=== PATIENT | male | born 1970 ===

== ENCOUNTER → 2021-02-23 10:33 | Outpatient (BNVA) | payer OTHER, SELFPAY | PROVIDERS: PCP Internal Medicine; Visit Provider Urology ==

== ENCOUNTER 2022-03-21 10:24 | Outpatient (REF) | payer OTHER, SELFPAY ==
--- NOTE | ~2022-03-21 | US_ITS ---
EXAMINATION: US RETROPERITONEAL LIMITED (RENAL ONLY) CLINICAL INFORMATION: Cyst of kidney. COMPARISON: None TECHNIQUE: Real-time imaging of the kidneys. FINDINGS: RIGHT KIDNEY: 11.9 x 5.3 x 5.2 cm (SAG x AP x TRV). The kidney is normal in size, contour, and echogenicity. Renal cortical thickness is normal. There is a 2.3 x 1.6 x 2.2 cm cyst in the mid to lower pole. This has some internal echoes that are difficult to clear and may represent a complex cyst. No renal calculi or hydronephrosis. LEFT KIDNEY: 11.8 x 6.6 x 6.6 cm (SAG x AP x TRV). The kidney is normal in size, contour, and echogenicity. Renal cortical thickness is normal. There are 2 cysts measuring 2.4 x 1.6 x 1.8 cm on the lower pole and 1.5 x 1.3 x 1.1 cm in the midpole. No renal calculi or hydronephrosis. US/US renal BI IMPRESSION: Bilateral renal cysts. The right renal cyst has internal echoes that are difficult to clear and may represent a complex cyst.
== END 2022-03-21 10:25 | disposition home or self-care (01) ==
LOC: HO.US 10:24
PROVIDERS: Visit Provider Urology
DX: N28.1 Cyst of kidney, acquired (principal)
CPT/HCPCS: 76775

== ENCOUNTER 2023-01-10 14:36 | Outpatient (REF) | payer OTHER, SELFPAY ==
--- NOTE | ~2023-01-10 | US_ITS ---
EXAMINATION: US RETROPERITONEAL LIMITED (RENAL ONLY) CLINICAL INFORMATION: Cyst of kidney, acquired. COMPARISON: Renal ultrasound 03/21/2022. TECHNIQUE: Real-time imaging of the kidneys. FINDINGS: RIGHT KIDNEY: 11.1 x 6.1 x 6.6 cm (SAG x AP x TRV). The kidney is normal in size, contour, and echogenicity. Renal cortical thickness is normal. No renal calculi or hydronephrosis. Stable 2.5 cm mildly complex cyst with internal echoes in the mid to lower pole. LEFT KIDNEY: 10.7 x 6.5 x 6.5 cm (SAG x AP x TRV). The kidney is normal in size, contour, and echogenicity. Renal cortical thickness is normal. No calculi or focal parenchymal lesions. No hydronephrosis. Previously seen cysts are not reproduced on the current examination. US/US renal BI IMPRESSION: Stable 2.5 cm mildly complex cyst with internal echoes in the mid to lower right kidney.
== END 2023-01-10 14:37 | disposition home or self-care (01) ==
LOC: HO.US 14:36
PROVIDERS: PCP Internal Medicine; Visit Provider Urology
DX: N28.1 Cyst of kidney, acquired (principal)
CPT/HCPCS: 76775

== ENCOUNTER 2023-04-12 13:31 | Outpatient (AMB) | payer OTHER, SELFPAY ==
--- NOTE | 2023-04-12 13:35 | MHC.OFFVIS ---
Intake Intake Visit Reasons: 1Y US(Set) Intake Note: Patient presents today for a 1 YR follow-up with Ultrasound Results. Meds- Sildenafil Allergies to Antibiotic- None Blood Thinner- None Cut Off Machine Helper Required: No Accompanied by: Self / Same As Patient Allergies No Known Allergies Allergy (Verified 04/12/23 13:44) HPI HPI Comments History of Present Illness Details Maninder is a pleasant male. Oxana is a patient Dr. Stapleton. He seen for the following urologic conditions - renal cyst discussed results PCP checks PSA cysts are not related to back discomfort encouraged to lose 10-15 lb with dietary modification Renal cyst Found on imaging during micro hematuria evaluation Imaging - 02/19 renal ultrasound with right renal cyst - 03/23 renal ultrasound bilateral cysts 2.4 cm - 03/24 renal ultrasound bilateral cysts continue surveillance PFSH Medical History Renal cyst, acquired Surgical History (Updated 04/12/23 @ 13:40 by KEYA Carcamo) Hx of shoulder surgery Hx of brain surgery Family History (Updated 04/12/23 @ 13:40 by KEYA Carcamo) Father Cancer Mother Diabetes mellitus Heart failure COPD (chronic obstructive pulmonary disease) Social History (Updated 04/12/23 @ 13:41 by KEYA Carcamo) Alcohol intake: never Patient Tobacco Use Status: Never used Tobacco Review of Systems Const Denies chills and Denies fever(s) Card Reports no additional complaints and Denies syncope Resp Denies cough GI Denies abdominal pain and Denies heartburn Reports as per HPI and Denies change in libido Neuro Denies syncope Psych Denies change in libido Endo Denies change in libido Physical Exam Const General: cooperative, healthy appearing, comfortable and no acute distress Orientation/consciousness: patient oriented x3 HEENT Face and sinus: Yes normal facial exam Mouth: moist mucous membranes Neck Neck: Yes normal visual inspection, Yes full ROM and Yes trachea midline Chest Chest palpation & inspection: normal inspection of the chest Resp Effort & Inspection: normal respiratory effort, able to speak in complete sentences and no respiratory distress GI Inspection: Yes normal to inspection Back/Spine/Pelvis Cervical Spine: normal cervical lordosis Thoracic/Lumbar Spine: thoracic and lumbar spine normal to inspection Skin General skin exam: no rashes or lesions noted Neuro General: patient oriented x3, gait normal, tone normal and moves all extremities Extrem General: Yes normal to inspection and Yes capillary refill normal Results AMB Urinalysis, Automated UA Leukoctes 0 Jaylen/uL Last Edit by KEYA Carcamo on 04/12/23 13:55 UA Nitrite Negative Last Edit by Freida Sanchez [facility] on 04/12/23 13:55 UA Urobilinogen 0.2 mg/dL Last Edit by Freida Sanchez Jessica on 04/12/23 13:55 UA Protein 0 mg/dL Last Edit by Freida Sanchez [facility] on 04/12/23 13:55 UA pH 6.0 Last Edit by Freida Sanchez [facility] on 04/12/23 13:55 UA Blood 80 Jose Manuel/uL Last Edit by Freida Sanchez [facility] on 04/12/23 13:55 2+ Freida Sanchez 04/12/23 13:55 UA Specific [place] 1.025 Last Edit by Freida Sanchez Jessica on 04/12/23 13:55 UA Ketone Negative Last Edit by Freida Sanchez [facility] on 04/12/23 13:55 UA Bilirubin 0 mg/dL Last Edit by Freida Sanchez [facility] on 04/12/23 13:55 UA Glucose 0 mg/dL Last Edit by Freida Sanchez [facility] on 04/12/23 13:55 Results Reviewed Results Reviewed: Laboratory Last Values Urine pH (Auto) 6.0 04/12/23 13:50 Specific [place] (Auto) 1.025 04/12/23 13:50 Urine Protein (Auto) 0 mg/dL 04/12/23 13:50 Glucose (UA)(Auto) 0 mg/dL 04/12/23 13:50 Urine Ketones (Auto) Negative 04/12/23 13:50 Urine Blood (Auto) 80 Jose Manuel/uL 04/12/23 13:50 Urine Nitrite (Auto) Negative 04/12/23 13:50 Urine Bilirubin (Auto) 0 mg/dL 04/12/23 13:50 Urine Urobilinogen (Auto) 0.2 mg/dL 04/12/23 13:50 Leukocyte Esterase (Auto) 0 Jaylen/uL 04/12/23 13:50 Assessment & Plan Assessment & Plan (1) Renal cyst: Code(s): N28.1 - Cyst of kidney, acquired Plan Twelve month follow-up Orders: Orders AMB Urinalysis Automated 04/12/23 Z13.9 - Encounter for screening, unspecified US renal BI 364 Days N28.1 - Cyst of kidney, acquired Patient Instructions: Imaging studies, laboratory and physical exam results were discussed and reviewed in detail. No major barriers to patient understanding were identified. An opportunity to ask questions regarding the treatment plan was provided. All questions were answered. The patient expressed understanding and agreement with the above treatment plan. The patient is aware they should contact our office by phone for worsening of their current condition or the appearance of new urologic symptoms. Compliance is encouraged with any medications and followup testing that is ordered. It is a privilege to participate in the urologic care of your patient. If you have any questions or concerns regarding treatment for the above conditions, or other urologic issues, please do not hesitate to contact me. The office telephone contact is [phone]. This note is constructed using voice recognition software. While every effort has been made to ensure accuracy band teacher errors may have been included. Yours sincerely, Dr Crescencio Harry MD, [facility] - Urology Providers of Expert, Compassionate Care for the Genitourinary System Coding Level of Care Code Est Pt Level 4 (86571) Diagnoses Renal cyst N28.1
== END 2023-04-12 14:33 | disposition home or self-care (01) ==
PROVIDERS: Visit Provider Urology
DX: N28.1 Cyst of kidney, acquired (principal)
CPT/HCPCS: 99213

== ENCOUNTER → 2023-04-12 13:31 | Outpatient (BNVA) | payer OTHER, SELFPAY | PROVIDERS: Visit Provider Urology ==

== ENCOUNTER 2024-04-08 08:03 | Outpatient (REF) | payer OTHER, SELFPAY ==
--- NOTE | ~2024-04-08 | US_ITS ---
EXAMINATION: US RETROPERITONEAL LIMITED (RENAL ONLY) CLINICAL INFORMATION: Cyst of kidney, acquired. COMPARISON: Ultrasound renal 01/10/2023 and 03/21/2022. TECHNIQUE: Real-time imaging of the kidneys. Limited visualization due to bowel gas. FINDINGS: RIGHT KIDNEY: 12.9 x 5.2 x 7.3 cm (SAG x AP x TRV). No hydronephrosis. No renal calculi. Renal cortical thickness is normal. Limited visualization. LEFT KIDNEY: 12.3 x 6.4 x 6.8 cm (SAG x AP x TRV). No hydronephrosis. No renal calculi. Renal cortical thickness is normal. Limited visualization. US/US renal BI IMPRESSION: 1. No hydronephrosis. No renal calculi. 2. Previously identified right renal 2.5 cm complex cyst is not visualized today, however, visualization limited due to bowel gas. Additional imaging could be obtained with CT scan if visualization of this cyst is indicated.
== END 2024-04-08 08:04 | disposition home or self-care (01) ==
LOC: HO.US 08:03
PROVIDERS: PCP Internal Medicine; Visit Provider Urology
DX: N28.1 Cyst of kidney, acquired (principal)
CPT/HCPCS: 76775

== ENCOUNTER 2024-05-24 14:49 | Outpatient (AMB) | payer OTHER, SELFPAY ==
--- NOTE | 2024-05-24 14:58 | A.OFFVIS_ITS ---
Intake Visit Reasons: 1Y Follow Up-Ultrasound(set) Intake Note: presents today for a 1 YR follow-up with Ultrasound Results. Meds- Sildenafil Allergies to Antibiotic- None Blood Thinner- None Classification Inspector Required: No Accompanied by: Self / Same As Patient Allergies No Known Allergies Allergy (Verified 06/14/24 06:50) Medication List - Last Reconciled 05/24/24 by Crescencio Harry MD sildenafil mg PO PRN tadalafil 20 mg PO ONCE PRN 30 days HPI Comments Details: Maninder is a pleasant male. He is a patient Dr. Stapleton. He seen for the following urologic conditions - renal cyst - erectile dysfunction Twelve month follow-up Continues with sildenafil for success Discussed renal ultrasound shows stable cysts PCP tracts PSA Twelve month follow-up Renal cyst Found on imaging during micro hematuria evaluation Imaging - 02/19 renal ultrasound with right renal cyst - 03/23 renal ultrasound bilateral cysts 2.4 cm - 03/24 renal ultrasound bilateral cysts - 03/25 renal ultrasound complex cyst right side 2.5 cm stable continue surveillance Erectile dysfunction Uses sildenafil PFSH Medical History Renal cyst, acquired Surgical History H/O colonoscopy Hx of shoulder surgery Hx of brain surgery Family History Father Cancer Mother Diabetes mellitus Heart failure COPD (chronic obstructive pulmonary disease) Social History Alcohol intake: never Patient Tobacco Use Status: Never used Tobacco Use of substances other than those prescribed or required for medical reasons: No Have you been hit, kicked, punched, or otherwise hurt by someone within the past year? If so, by whom?: No Are you DNR?: No Advance Directives: No Advance Directives Information Provided: Yes Recently lost weight without trying: No Nutrition Risks: No Nutritional Risk Review of Systems Const Denies chills and Denies fever(s) Card Reports no additional complaints and Denies syncope Resp Denies cough GI Denies abdominal pain and Denies heartburn Reports as per HPI and Denies change in libido Neuro Denies syncope Psych Denies change in libido Endo Denies change in libido Physical Exam Const General: cooperative, healthy appearing, comfortable and no acute distress Orientation/consciousness: patient oriented x3 HEENT Face and sinus: Yes normal facial exam Mouth: moist mucous membranes Neck Neck: Yes normal visual inspection, Yes full ROM and Yes trachea midline Chest Chest palpation & inspection: normal inspection of the chest Resp Effort & Inspection: normal respiratory effort, able to speak in complete sentences and no respiratory distress GI Inspection: Yes normal to inspection Back/Spine/Pelvis Cervical Spine: normal cervical lordosis Thoracic/Lumbar Spine: thoracic and lumbar spine normal to inspection Skin General skin exam: no rashes or lesions noted Neuro General: patient oriented x3, gait normal, tone normal and moves all extremities Extrem General: Yes normal to inspection and Yes capillary refill normal Results AMB Urinalysis, Automated UA Leukoctes 0 Jaylen/uL Last Edit by NASREEN Pinto on 05/24/24 15:08 UA Nitrite Negative Last Edit by NASREEN Pinto on 05/24/24 15:08 UA Urobilinogen 0.2 mg/dL Last Edit by NASREEN Pinto on 05/24/24 15:0 8 UA Protein 0 mg/dL Last Edit by NASREEN Pinto on 05/24/24 15:08 UA pH 6.0 Last Edit by NASREEN Pinto on 05/24/24 15:08 UA Blood 25 Jose Manuel/uL Last Edit by NASREEN Pinto on 05/24/24 15:08 UA Specific [place] 1.015 Last Edit by NASREEN Pinto on 05/24/24 15: 08 UA Ketone Negative Last Edit by NASREEN Pinto on 05/24/24 15:08 UA Bilirubin 0 mg/dL Last Edit by NASREEN Pinto on 05/24/24 15:08 UA Glucose 0 mg/dL Last Edit by NASREEN Pinto on 05/24/24 15:08 Results Reviewed Results Reviewed: Laboratory Last Values Urine pH (Auto) 6.0 05/24/24 15:08 Specific [place] (Auto) 1.015 05/24/24 15:08 Urine Protein (Auto) 0 mg/dL 05/24/24 15:08 Glucose (UA)(Auto) 0 mg/dL 05/24/24 15:08 Urine Ketones (Auto) Negative 05/24/24 15:08 Urine Blood (Auto) 25 Jose Manuel/uL 05/24/24 15:08 Urine Nitrite (Auto) Negative 05/24/24 15:08 Urine Bilirubin (Auto) 0 mg/dL 05/24/24 15:08 Urine Urobilinogen (Auto) 0.2 mg/dL 05/24/24 15:08 Leukocyte Esterase (Auto) 0 Jaylen/uL 05/24/24 15:08 Assessment & Plan Assessment & Plan (1) Erectile dysfunction: Code(s): N52.9 - Male erectile dysfunction, unspecified Category: Medical (2) Renal cyst: Code(s): N28.1 - Cyst of kidney, acquired Category: Medical Plan Twelve month follow-up Orders: Orders AMB Urinalysis Automated 05/24/24 Z13.9 - Encounter for screening, unspecified Patient Instructions: Imaging studies, laboratory and physical exam results were discussed and reviewed in detail. No major barriers to patient understanding were identified. An opportunity to ask questions regarding the treatment plan was provided. All questions were answered. The patient expressed understanding and agreement with the above treatment plan. The patient is aware they should contact our office by phone for worsening of their current condition or the appearance of new urologic symptoms. Compliance is encouraged with any medications and followup testing that is ordered. It is a privilege to participate in the urologic care of your patient. If you have any questions or concerns regarding treatment for the above conditions, or other urologic issues, please do not hesitate to contact me. The office telephone contact is [phone]. This note is constructed using voice recognition software. While every effort has been made to ensure accuracy sterilization tech errors may have been included. Yours sincerely, Dr Crescencio Harry MD, [facility] - Urology Providers of Expert, Compassionate Care for the Genitourinary System Coding Level of Care Code Est Pt Level 4 (33956) Diagnoses Erectile dysfunction N52.9 Renal cyst N28.1
== END 2024-05-24 15:54 | disposition home or self-care (01) ==
PROVIDERS: PCP Internal Medicine; Visit Provider Urology
DX: N52.9 Male erectile dysfunction, unspecified (principal); N28.1 Cyst of kidney, acquired
CPT/HCPCS: 99214

== ENCOUNTER → 2024-05-24 14:49 | Outpatient (BNVA) | payer OTHER, SELFPAY | PROVIDERS: PCP Internal Medicine; Visit Provider Urology | DX: N52.9 Male erectile dysfunction, unspecified (principal); N28.1 Cyst of kidney, acquired | CPT/HCPCS: 81003 ==

== ENCOUNTER 2024-06-14 06:38 | Day surgery (SDC) | payer OTHER, SELFPAY ==
[2024-06-12 14:14] VITALS: BMI 36.3
--- NOTE | 2024-06-13 10:05 | HO.ANESPROP2 ---
Documented by User: Angélica Rosado NP 06/13/24 10:06 HPI - Anesthesia Eval Consult details Narrative: 54yo M for Colonoscopy PMFSH Active Problems Active Problems: All Active Problems Erectile dysfunction (Acute) Renal cyst (Acute) Past Medical History Medical History Renal cyst, acquired Family History Family History Father Cancer Mother Diabetes mellitus Heart failure COPD (chronic obstructive pulmonary disease) Surgical History Surgical History H/O colonoscopy Hx of shoulder surgery Hx of brain surgery Social History Social History Alcohol intake: never Patient Tobacco Use Status: Never used Tobacco Use of substances other than those prescribed or required for medical reasons: No Have you been hit, kicked, punched, or otherwise hurt by someone within the past year? If so, by whom?: No Are you DNR?: No Advance Directives: No Advance Directives Information Provided: Yes Recently lost weight without trying: No Nutrition Risks: No Nutritional Risk Meds Allergies Allergy/AdvReac Type Severity Reaction Status Date / Time No Known Allergies Allergy Verified 06/14/24 06:50 Home Medications ?Medication ?Instructions ?Recorded ?Confirmed ?Last Taken ?Type No Known Home Meds 06/12/24 06/12/24 Unknown History Exam Height,Weight and Vital Signs: Height 6 ft 2 in Weight 128.367 kg Assessment and Plan Assessment Anesthesia Assessment: Chart Reviewed Documented by User: Carol Tai MD 06/14/24 07:59 PMFSH Active Problems Active Problems: All Active Problems Erectile dysfunction (Acute) Renal cyst (Acute) Increased BMI Past Medical History Medical History Renal cyst, acquired Family History Family History Father Cancer Mother Diabetes mellitus Heart failure COPD (chronic obstructive pulmonary disease) Family history of problems with anesthesia: No Surgical History Surgical History H/O colonoscopy Hx of shoulder surgery Hx of brain surgery History of Problems with Anesthesia: No Social History Social History Alcohol intake: never Patient Tobacco Use Status: Never used Tobacco Use of substances other than those prescribed or required for medical reasons: No Have you been hit, kicked, punched, or otherwise hurt by someone within the past year? If so, by whom?: No Are you DNR?: No Advance Directives: No Advance Directives Information Provided: Yes Recently lost weight without trying: No Nutrition Risks: No Nutritional Risk Meds Allergies Allergy/AdvReac Type Severity Reaction Status Date / Time No Known Allergies Allergy Verified 06/14/24 06:50 Home Medications ?Medication ?Instructions ?Recorded ?Confirmed ?Last Taken ?Type No Known Home Meds 06/12/24 06/12/24 Unknown History Exam Height,Weight and Vital Signs: Height 6 ft 2 in Weight 128.367 kg Vital Signs Temp Pulse Resp BP Pulse Ox O2 Del Method 06/14/24 07:11 97.5 F 84 16 137/79 94 Room Air Airway Mallampati Class: II TM Dist: >3cm Neck ROM: Full Loose/Missing/Broken Teeth: Yes (Top front bonded- chipped.Denies missing or loose teeth) Heart: RRR Lungs: CTAB Assessment and Plan Assessment Anesthesia Assessment: Anesthesia Plan Discussed and Chart Reviewed Final Anesthetic Review Family History of Problems with Anesthesia: No History of Problems with Anesthesia: No NPO: Yes ASA Class: II Final Preanesthetic Review: No Changes in Pt Med Stat, Meds/Allgs Chart Reviewed, Consent Obtained/Reviewed and Anes Risks/Benef Reviewed Patient Risk: Intermediate Procedure Risk: Low Assessment/Block/Sedation in SS: Assess/Block/Sedation-SS Anesthetic Plan Anesthetic Plan: TIVA Disposition: Standard PACU
[2024-06-14 06:44] VITALS: BMI 35.8
[2024-06-14 07:11] VITALS: BP 137/79; PULSE 84; RESP 16; TEMP 36.4; O2SAT 94
[2024-06-14] MEDS: Lactated Ringers 1,000 ML 100 ML IVCONT (07:13)
[2024-06-14 08:24] VITALS: BP 133/76; PULSE 75; RESP 17; TEMP 36.1; O2SAT 94
--- NOTE | 2024-06-14 08:26 | PM.OP ---
Brief Operative Note Date of Service: 06/14/24 Pre-op diagnosis: Screening Post-op diagnosis: other (Rectal polyp) Procedure: Colonoscopy to the cecum and TI with cold snare polypectomy Surgeon: Tremaine Powers MD Anesthesia: MAC Was an Local Announcer used for this Procedure?: No Estimated blood loss (mL): 2.0 Pathology: other (A. Rectal polyp) Condition: stable Disposition: PACU
[2024-06-14 08:39] VITALS: BP 109/68; PULSE 78; RESP 18; TEMP 36.1; O2SAT 96
--- NOTE | 2024-06-14 09:23 | OP_ITS ---
DATE OF SERVICE: 06/14/2024 SURGEON: Tremaine Powers MD INDICATIONS: The patient presents for evaluation of colorectal cancer screening. Full consent has been obtained from him for this, including risks of bleeding and perforation. PREOPERATIVE DIAGNOSIS: Colorectal cancer screening. POSTOPERATIVE DIAGNOSIS: PROCEDURE PERFORMED: Colonoscopy to the cecum and terminal ileum with cold snare polypectomy. ESTIMATED BLOOD LOSS: COMPLICATIONS: ANESTHESIA: Monitored anesthesia care. ASSISTANTS: SPECIMENS: POSTOPERATIVE DIAGNOSES: Colorectal cancer screening, small colon polyp, mild diverticulosis, and small internal hemorrhoids. DESCRIPTION OF PROCEDURE: The patient was placed in the left lateral decubitus position. The digital rectal exam revealed no abnormalities. The Olympus video pediatric colonoscope was entered into the rectum and advanced easily to the cecum. Once in the cecum, I did identify normal-appearing cecal pouch with appendiceal orifice and a normal-appearing ileocecal valve. The terminal ileum was cannulated and appeared normal. The scope was withdrawn back in the colon. The entire cecum and ileocecal valve appeared normal. The scope was slowly withdrawn assessing all mucosal surfaces carefully. Preparation was excellent. There was a mild amount of sigmoid diverticulosis. I did not visualize any sign of colitis nor angiodysplasia. The only polyp I visualized was in the proximal rectum. This was approximately 5 mm in diameter and removed by cold snare polypectomy. The specimen was recovered by suction. The polypectomy site appeared clean, without any sign of residual polyp nor significant bleeding. The scope was retroflexed visualizing small internal hemorrhoids, but no other pathology. The rectal mucosa appeared normal. The scope was straightened and withdrawn from the patient. He tolerated the procedure well and was returned to the recovery area in stable condition. IMPRESSION: 1. Small colon polyp. 2. Mild diverticulosis. 3. Small internal hemorrhoids. PLAN: The results of the biopsies will be checked. If the polyp is a tubular adenoma, I would recommend a followup coloscopy in 5 years. If it is only hyperplastic, I would recommend a followup coloscopy in 10 years. He will otherwise see me on a p.r.n. basis. MD WOLF Izaguirre/LITZY / [phone]
== END 2024-06-14 09:45 | disposition home or self-care (01) ==
PROVIDERS: PCP Internal Medicine; Visit Provider Internal Medicine
PROC: 0DJD8ZZ Inspection of Lower Intestinal Tract, Via Natural or Artificial Opening Endoscopic (ICD-10-PCS; CPT 45378; principal; 2024-06-14 07:30)
DX: Z12.11 Encounter for screening for malignant neoplasm of colon (principal); K62.1 Rectal polyp; K57.30 Diverticulosis of large intestine without perforation or abscess without bleeding; K64.8 Other hemorrhoids
CPT/HCPCS: 45385; 88305; J2704

== ENCOUNTER 2025-05-27 14:19 | Outpatient (AMB) | payer OTHER, SELFPAY ==
--- OUTSIDE RECORDS SUMMARY | 2024-06-14 03:30 | XMS_ITS ---
Author Organization [facility] Address [address] [place] [id number] Care Team Providers Care Copy Coordinator Name Role Phone DominguezJani Primary Care Provider Tremaine Goodrich [phone] REASON FOR VISIT screening colon Problems Problem Type SNOMED Code ICD Code Onset Dates Problem Status W/U Status Risk Notes Problem Diverticular disease of colon (767725571) Diverticulosis of large intestine without perforation or abscess without bleeding (K57.30) Active confirmed Encounters Encounter Location Date Provider Diagnosis [facility] Outpatient [address] [place] [phone] 06/14/2024 Tremaine Powers Colon cancer scree keanu Z12.11 ; Colon polyps K63.5 ; Diverticulosis of large intestine without perforation or abscess without bleeding K57.30 and Other hemorrhoids K64.8 Assessments Encounter Date Diagnosis (ICD Code) Assessment Notes Treatment Notes Treatment Clinical Notes Section Notes 06/14/2024 Colon cancer screening (ICD-10 - Z12.11) 06/14/2024 Colon polyps (ICD-10 - K63.5) 06/14/2024 Diverticulosis of large intestine without perforation or abscess without bleeding (ICD-10 - K57.30) 06/14/2024 Other hemorrhoids (ICD-10 - K64.8) Plan Of Treatment No Information Progress Notes * JENNIFER RESENDEZDOB :1970 (55 yo M)Acc No.[id number]:06/14/2024 COLON WITH MAC Patient: Roxana PARHAM JENNIFER GARZA Provider: Shea Powers MD :1970 A ge:54 Y S ex:Male Date:06/14/2024 Address:[address] [place], [place] [id number] Pcp:Jani Dominguez Subjective: * Chief Complaints: * 1 . Screening colon. * Medical History: Objective: * Vitals: Assessment: * Assessment: 1. C olon cancer screening - Z12.11 (Primary) 2 . C olon polyps - K63.5? 3. D iverticulosis of large intestine without perforation or abscess without bleeding - K57.30 4 . O ther hemorrhoids - K64.8 Plan: * Treatment: * Procedure Codes: 4 5385 LESION REMOVAL COLONOSCOPY, Modifiers: 33 * * The named appointment provid er may or may not be the originator of this progress note, and it is not deemed complete until electronically signed by the appointment provider. Sign off status: Pending * Provider: Shea Powers MD Date: 0 06/14/2024 Generated for Rod masterson/Meliza/Artemioitting on: 0 05/27/2025 03:19 PM EDT
--- OUTSIDE RECORDS SUMMARY | 2025-03-28 06:23 | XMS_ITS ---
Author Organization [facility] Address [address] [place] [phone] Care Team Providers Care Special Education Professional Name Role Phone PRAKASH CURTIS Primary Care Provider REASON FOR VISIT ER Follow Up Encounters Encounter Location Date Provider Diagnosis [facility] [address] [place] [phone] 03/28/2025 PRAKASH CURTIS PLAN OF TREATMENT Next Appt Details Provider Name:PRAKASH ROBBINS, 02/05/2026 03:00:00 PM, [address] [place], [phone],
--- OUTSIDE RECORDS SUMMARY | 2025-04-20 07:25 | XMS_ITS ---
Author Organization [facility] Address [address] [place] [phone] Care Team Providers Care Meteorologist Liaison Name Role Phone PRAKASH CURTIS Primary Care Provider MARY JANE DOUGLASS [phone] REASON FOR VISIT Chart Request-Urgent Encounters Encounter Location Date Provider Diagnosis [facility] [address] [place] [address] 04/20/2025 MARY JANE DOUGLASS PLAN OF TREATMENT Next Appt Details Provider Name:PRAKASH ROBBINS, 02/05/2026 03:00:00 PM, [address] [place], [phone],
--- OUTSIDE RECORDS SUMMARY | 2025-04-21 07:40 | XMS_ITS ---
Author Organization [facility] Address [address] [place] [phone] Care Team Providers Care Foundation Digger Name Role Phone PRAKASH CURTIS Primary Care Provider [phone] MARY JANE DOUGLASS [phone] REASON FOR VISIT KP 42 ER Follow Up Encounters Encounter Location Date Provider Diagnosis [facility] [address] [place] [address] 04/21/2025 MARY JANE DOUGLASS PLAN OF TREATMENT Next Appt Details Provider Name:PRAKASH ROBBINS, 02/05/2026 03:00:00 PM, [address] [place], [address],
--- NOTE | 2025-05-27 14:20 | A.OFFVIS_ITS ---
Intake Visit Reasons: 1y follow up Intake Note: presents today for a 1 YR follow-up Meds- none Allergies to Antibiotic- None Blood Thinner- None Nurse Recruiter Required: No Accompanied by: Self / Same As Patient Allergies No Known Allergies Allergy (Verified 05/27/25 14:21) HPI Comments Details: Maninder is a pleasant male. He is a patient Dr. Stapleton. He seen for the following urologic conditions - renal cyst - erectile dysfunction Twelve month follow-up Continues with sildenafil for success May follow prn Renal cyst Found on imaging during micro hematuria evaluation Imaging - 02/19 renal ultrasound with right renal cyst - 03/23 renal ultrasound bilateral cysts 2.4 cm - 03/24 renal ultrasound bilateral cysts - 03/25 renal ultrasound complex cyst right side 2.5 cm stable continue surveillance Erectile dysfunction Uses sildenafil PFSH Medical History Renal cyst, acquired Surgical History H/O colonoscopy Hx of shoulder surgery Hx of brain surgery Family History Father Cancer Mother Diabetes mellitus Heart failure COPD (chronic obstructive pulmonary disease) Social History Alcohol intake: never Patient Tobacco Use Status: Never used Tobacco Review of Systems Const Denies chills and Denies fever(s) Card Reports no additional complaints and Denies syncope Resp Denies cough GI Denies abdominal pain and Denies heartburn Reports as per HPI and Denies change in libido Neuro Denies syncope Psych Denies change in libido Endo Denies change in libido Physical Exam Const General: cooperative, healthy appearing, comfortable and no acute distress Orientation/consciousness: patient oriented x3 HEENT Face and sinus: Yes normal facial exam Mouth: moist mucous membranes Neck Neck: Yes normal visual inspection, Yes full ROM and Yes trachea midline Chest Chest palpation & inspection: normal inspection of the chest Resp Effort & Inspection: normal respiratory effort, able to speak in complete sentences and no respiratory distress GI Inspection: Yes normal to inspection Back/Spine/Pelvis Cervical Spine: normal cervical lordosis Thoracic/Lumbar Spine: thoracic and lumbar spine normal to inspection Skin General skin exam: no rashes or lesions noted Neuro General: patient oriented x3, gait normal, tone normal and moves all extremities Extrem General: Yes normal to inspection and Yes capillary refill normal Assessment & Plan Assessment & Plan (1) Renal cyst: Code(s): N28.1 - Cyst of kidney, acquired Category: Medical (2) Erectile dysfunction: Code(s): N52.9 - Male erectile dysfunction, unspecified Category: Medical Plan P.r.n. follow-up Patient Instructions: This note is constructed using voice recognition software. While every effort has been made to ensure accuracy patch washer errors may have been included. Imaging studies, laboratory and physical exam results were discussed and reviewed in detail. No major barriers to patient understanding were identified. An opportunity to ask questions regarding the treatment plan was provided. All questions were answered. The patient expressed understanding and agreement with the above treatment plan. The patient is aware they should contact our office by phone for worsening of their current condition or the appearance of new urologic symptoms. Compliance is encouraged with any medications and followup testing that is ordered. It is a privilege to participate in the urologic care of your patient. If you have any questions or concerns regarding treatment for the above conditions, or other urologic issues, please do not hesitate to contact me. The office telephone contact is [phone]. Sincerely, Dr Crescencio Harry MD, SAMINA [facility] - Urology Compassionate Specialist Care for the Genitourinary System Coding Level of Care Code Est Pt Level 4 (88064) Diagnoses Renal cyst N28.1 Erectile dysfunction N52.9
--- OUTSIDE RECORDS SUMMARY | 2025-05-27 15:20 | XMS_ITS | Patient Health Record ---
Author Organization [facility] Address [address] [place] [address] Care Team Providers Care Straight Knife Cutter Machine Name Role Phone Angelica Jani Primary Care Provider Tremaine Goodrich [phone] Allergies No Known Allergies Results Component Value Reference Range Notes Pathology (Not yet reviewed by provider) Interpretation: Performing Lab:[facility], [address] [place] [phone] Notes/Report: Reason For Referral No Information Social History Tobacco Use: Social History Observation Description Date Details (start date - stop date) Former Smoker NA - NA Tobacco Use/Smoking Question Answer Notes Patient is a former smoker How long has it been since you last smoked? > 10 years Alcohol Screen Question Answer Notes Did you have a drink contain ing alcohol in the past year? Yes How often did you have a dri nk containing alcohol in the past year? Never (0 point) How many drinks did you have on a typical day when you were drinking in the past year? 1 or 2 drinks (0 point) How often did you have 6 or more drinks on one occasion in the past year? Never (0 point) Points 0 Interpretation Negative Section Notes: Nonsmoker. No sig alcohol Problems Problem Type SNOMED Code ICD Code Onset Dates Problem Status W/U Status Risk Notes Problem Colon cancer screening (168310945) Colon cancer screening (Z12.11) Active confirmed Problem Encounter for other preprocedural examination (Z01.818) Active confirmed Problem Diverticular disease of colon (711553754) Diverticulosis of large intestine without perforation or abscess without bleeding (K57.30) Active confirmed Encounters Encounter Location Date Provider Diagnosis [facility] Outpatient [address] [place] [phone] 06/14/2024 Tremaine Powers Colon cancer calvin colunga Z12.11 ; Colon polyps K63.5 ; Diverticulosis [...] hemorrhoids (ICD-10 - K64.8) Plan Of Treatment Pending Test Test Name Order Date Pathology 06/14/2024 Future Test Test Name Order Date COLONOSCOPY 02/15/2024 Insurance Providers Payer Name Payer Address Payer Phone Subscriber Number Group Number Insured Name Patient Relationship to Insured Coverage Start Date Coverage End Date [facility] [employer] [address] [place] [address] [id number] JENNIFER RESENDEZ Self - patient is the insured Medical (General) History Medical History History ICD Code Denies NC,DM,CVA,Lung disease,renal dise ase Colonoscopy 04/2014 Dr. Odonnell 1 small kassandra yp Surgical History Surgery Date(Month/Year) Right shoulder biceps, rotator cuff 2022 Neuro[place] [facility] [place]
--- OUTSIDE RECORDS SUMMARY | 2025-05-27 15:20 | XMS_ITS | Patient Health Record ---
Author Organization [facility] Address [address] [place], [place] [id number] Care Team Providers Care Rolled Seat Trimmer Name Role Phone CURTIS PRAKASH Primary Care Provider PENN LAIRD, NURSING Unavailable [phone] PULROSEMARY RODRIGUESLIN Unavailable [phone] ALLERGIES No Known Allergies RESULTS Component Value Reference Range Notes Urinalysis, Complete w/ME-00 3965 Reviewed date:02/04/2025 10:38:00 AM Interpretation: Performing Lab:[facility], [facility] [facility], Phone - [phone], Director - Aileen Notes/Report: Specific [place] 1.012 1.005-1.030 pH 6.0 5.0-7.5 Urine-Color Yellow Yellow Appearance Clear Clear WBC Esterase Negative Negative Protein Negative Negative/Trace Glucose Negative Negative Ketones Negative Negative Occult Blood Negative Negative Bilirubin Negative Negative Urobilinogen,Semi-Qn 0.2 0.2-1.0 mg/dL Nitrite, Urine Negative Negative Microscopic Examination Micr oscopic follows if indicated. Microscopic Examination See below: Micr oscopic was indicated and was performed. WBC None seen 0 - 5 /hpf RBC None seen 0 - 2 /hpf Epithelial Cells (non renal) None seen 0 - 10 /hpf Epithelial Cells (renal) Casts None seen None seen /lpf Cast Type Crystals Crystal Type Mucus Threads Bacteria None seen None seen/Few Yeast Trichomonas Comment CBC, Platelet, w/o Different ial-[id number] Reviewed date:02/04/2025 08:18:01 AM Interpretation: Performing Lab:[facility], [facility] [facility] [place], Phone - [phone], Director - Lilyy Notes/Report: WBC 8.1 3.4-10.8 x10E3/uL RBC 5.82 4.14-5.80 x10E6/uL Hemoglobin 18.3 13.0-17.7 g/dL Hematocrit 56.5 37.5-51.0 % MCV 97 79-97 fL MCH 31.4 26.6-33.0 pg MCHC 32.4 31.5-35.7 g/dL RDW 12.7 11.6-15.4 % Platelets 195 150-450 x10E3/uL BANNER Prostate-Specific Ag (PSA)-0 [id number] Reviewed date:02/04/2025 02:23:55 PM Interpretation: Performing Lab:[facility], [address] [place] [address], Phone - [phone], Director - Aileen Notes/Report: Prostate Specific Ag 1.2 0.0-4.0 ng/mL Tenisha ECLIA methodology. . According to the [place] [employer], Serum PSA should decrease and remain at undetectable levels after radical prostatectomy. The AUA defines biochemical recurrence as an initial PSA value 0.2 ng/mL or greater followed by a subsequent confirmatory PSA value 0.2 ng/mL or greater. Values obtained with different assay methods or kits cannot be used interchangeably. Results cannot be interpreted as absolute evidence of the presence or absence of malignant disease. EKG Reviewed date:02/06/2025 12:16:13 PM Interpretation: Performing Lab: Notes/Report: ECGDiastolicBP ECGHr ECGPRInterval ECGPWaveAxis ECGQRSDuration ECGQrsWaveAxis ECGQTcInterval ECGQTInterval ECGSystolicBP ECGTWaveAxis RR_DiastolicBP RR_MaxRRInterval RR_MeanHR RR_MeanRRInterval RR_MinRRInterval RR_NumBeats RR_NumNormalBeats RR_SystolicBP Erythropoietin (EPO), Serum- [id number] Reviewed date:02/27/2025 10:30:33 AM Interpretation: Performing Lab:[facility], [address] [facility], Phone - [phone], Director - Aileen Notes/Report: Erythropoietin 13.5 2.6-18.5 mIU/mL NewCell DxI 800 Immunoassay System . Values obtained with different assay methods or kits cannot be used interchangeably. Results cannot be interpreted as absolute evidence of the presence or absence of malignant disease. C-Reactive Protein, Cardiac- [id number] Reviewed date:02/04/2025 08:16:55 AM Interpretation: Performing Lab:[facility], [address], [place], Phone - [phone], Director - ORRosette Notes/Report: C-Reactive Protein, Cardiac 6.70 0.00-3.00 mg/L Relative Risk for Future Cardiovascular Event Low <1.00 Average 1.00 - 3.00 High >3.00 JAK2 Mutation Analysis, Qual -[id number] Reviewed date:03/03/2025 10:35:40 PM Interpretation: Performing Lab:[facility], [address] [facility] [place], Phone - [phone], Director - [facility] Notes/Report: JAK2 V617F mutation detection Result: NEGATIVE for the JAK2 V617F mutation. . Interpretation: The G to T nucleotide change encoding the V617F mutation was not detected. This result does not rule out the presence of the JAK2 mutation at a level below the sensitivity of detection of this assay, or the presence of other mutations within JAK2 not detected by this assay. This result does not rule out a diagnosis of polycythemia vera, essential thrombocythemia or idiopathic myelofibrosis as the V617F mutation is not detected in all patients with these disorders. . Background: JAK2 is a cytoplasmic tyrosine kinase with a easton role in signal transduction from multiple hematopoietic growth factor receptors. A point mutation within exon 14 of the JAK2 gene (I6797G) encoding a valine to phenylalanine substitution at position 617 of the JAK2 protein (V617F) has been identified in most patients with polycythemia vera, and in about half of those with either essential thrombocythemia or idiopathic myelofibrosis. The V617F has also been detected, although infrequently, in other myeloid disorders such as chronic myelomonocytic leukemia and chronic neutrophilic luekemia. V617F is an acquired mutation that alters a highly conserved valine present in the negative regulatory JH2 domain of the JAK2 protein and is predicted to dysregulate kinase activity. . Methodology: Total genomic DNA was extracted and subjected to TaqMan real-time PCR amplification/detection. Two amplification products per sample were monitored by real-time PCR using primers/probes specific to JAK2 wild type (WT) and JAK2 mutant V617F. The [id number] Absolute Quantitation software will compare the patient specimen valuse to the standard curves and generate percent values for wild type and mutant type. In vitro studies have indicated that this assay has an analytical sensitivity of 1%. . References: King EJ, Deyvi MARSH, Roger PJ, et al. Acquired mutation of the tyrosine kinase JAK2 in human myeloproliferative disorders. Lancet. 2005 Dec 18; 365(9614):8230-6364. Jeramy Sandoval, Abraham V, Catia Huang NIGEL. A unique clonal JAK2 mutation leading to constitutive signaling causes polycythaemia vera. Nature. 2005 Jan 27; 434(8373):2515-8943. Radha R, Jasmin F, Ziyad , et al. A duzb-av-vplbbcvo mutation of JAK2 in myeloproliferative disorders. N Engl J Med. 2004Jan 27; 352(89):9040-3214. Director Review: Dipak Lynn, PhD, [facility] Director, Molecular Oncology [facility] [place] [address] This test was developed and its performance characteristics determined by [facility]. It has not been cleared or approved by the Food and Drug Administration. Comp. Metabolic Panel 14-3 [id number] Reviewed date:02/04/2025 12:21:55 PM Interpretation: Performing Lab:[facility], [address] [place] [address], [place], Phone - [phone], Director - Aileen Notes/Report: Glucose 85 70-99 mg/dL BUN 12 6-24 mg/dL Creatinine 0.89 0.76-1.27 mg/dL eGFR 102 >59 mL/min/1.73 BUN/Creatinine Ratio 13 9-20 Sodium 139 134-144 mmol/L Potassium 4.4 3.5-5.2 mmol/L Chloride 100 96-106 mmol/L Anion Gap 19.0 10.0-18.0 mmol/L Carbon Dioxide, Total 20 20-29 mmol/L Calcium 9.1 8.7-10.2 mg/dL Protein, Total 7.3 6.0-8.5 g/dL Albumin 4.6 3.8-4.9 g/dL Globulin, Total 2.7 1.5-4.5 g/dL Bilirubin, Total 0.4 0.0-1.2 mg/dL Alkaline Phosphatase 129 44-121 IU/L AST (SGOT) 24 0-40 IU/L ALT (SGPT) 23 0-44 IU/L Lipid Panel-[id number] Reviewed date:02/04/2025 12:22:15 PM Interpretation: Performing Lab:[facility] [place], [address] [place] [address], Phone - [phone], Director - Roberty Notes/Report: Cholesterol, Total 157 100-199 mg/dL Triglycerides 76 0-149 mg/dL HDL Cholesterol 38 >39 mg/dL VLDL Cholesterol Jayme 15 5-40 mg/dL LDL Chol Calc ([facility]) 104 0-99 mg/dL LDL Calc Comment: BMP8+eGFR-[id number] Reviewed date:03/18/2025 06:16:03 AM Interpretation: Performing Lab:[facility] [place], [address] [place] [address], Phone - [phone], Director - Aileen Notes/Report: Glucose 99 70-99 mg/dL BUN 12 6-24 mg/dL Creatinine 0.88 0.76-1.27 mg/dL eGFR 102 >59 mL/min/1.73 BUN/Creatinine Ratio 14 9-20 Sodium 138 134-144 mmol/L Potassium 4.8 3.5-5.2 mmol/L Chloride 102 96-106 mmol/L Carbon Dioxide, Total 22 20-29 mmol/L Anion Gap 14.0 10.0-18.0 mmol/L Calcium 9.0 8.7-10.2 mg/dL HCV Antibody-[id number] Reviewed date:02/04/2025 12:22:15 PM Interpretation: Performing Lab:[facility] [place], [address] [place] [address], Phone - [phone], Director - Krystledry Notes/Report: Hep C Virus Ab Non Reactive Non Reactive HCV antibody alone does not differentiate between previously resolved infection and active infection. Equivocal and Reactive HCV antibody results should be followed up with an HCV RNA test to support the diagnosis of active HCV infection. CBC, Platelet, w/o Different ial-[id number] Reviewed date:02/27/2025 06:51:29 AM Interpretation: Performing Lab:[address], Phone - [phone], Director - Roberty Notes/Report: WBC 7.9 3.4-10.8 x10E3/uL RBC 5.47 4.14-5.80 x10E6/uL Hemoglobin 17.3 13.0-17.7 g/dL Hematocrit 51.6 37.5-51.0 % MCV 94 79-97 fL MCH 31.6 26.6-33.0 pg MCHC 33.5 31.5-35.7 g/dL RDW 12.3 11.6-15.4 % Platelets 195 150-450 x10E3/uL NRBC 24 hour ambulatory blood pre ssure monitor Reviewed date:02/14/2025 03:30:12 PM Interpretation: Performing Lab: Notes/Report: REASON FOR REFERRAL Reason (07/23/24 2 provider info) (2)FLORENTINO PATRICK PA-C F52.21 Referral Organization [facility] As counts include 234 beds at the [facility] Referring Provider First Name PRAKASH Referring Provider Last Name CURTIS Referring Provider Speciality Internal M edicine Referred Provider GENEVIEVE BELL Referred Provider Specialty Internal Med [facility] Notes [facility] f or Functional Medicine. Pt has an appt 07/17. Pt is, Brandy HWANG Call Center 07/17/2024 12:13:44 PM >Pt called, he will see [place] w/ further information, see referral started., Annabel HWANG Call Center 07/17/2024 12:33:20 PM >NPI: [id number] Visits: 10 fax:[phone] Dx: E29.1, Rose HWANG Referrals 07/17/2024 02:58:31 PM >, FLORENTINO PATRICK PA-C, , unable to process referral as Artur Jain is listed as the patients PCP with [facility], Rose HWANG Referrals 07/23/2024 11:13:57 AM > pcp has been updated, unable to process referral under , Florentino Patrick PA-C, supervising provider information is needed, faxed to [facility] at [phone], Carlie HWANG Call Center 07/24/2024 08:21:06 AM > Dr. Genevieve Bell is overseeing provider , npi: [phone], Carlie HWANG Call Center 07/25/2024 08:48:16 AM > [facility] office calling again needs this STAT, Rose HWANG Referrals 07/30/2024 10:46:40 AM > pcp has been updated, unable to process referral under Florentino Patrick PA-C, back dated referral approved and faxed to Fabiana Referral Priority Stat Referral Appointment Date 07/17/2024 Diagnosis 1 Hypertension, unspec ified type (I10) Referral Organization [facility] As sociates Referring Provider First Name PRAKASH Referring Provider Last Name EVER Referring Provider Speciality Internal M edicine General Notes david Baer. Where is it going?, PRAKASH CURTIS 02/04/2025 12:20:38 PM > it is for a 24-hour ambulatory blood pressure monitor Referral Priority Routine MEDICATIONS Medication SIG (Take, Route, Frequency, Duration) Notes Start Date End Date Status Losartan Potassium 25 MG 1 tablet Orally Once a day for 90 days Active SOCIAL HISTORY Tobacco Use: Social History Observation Description Date Details (start date - stop date) Never Smoker NA - NA Sex Assigned At : Social History Observation Description Sex Assigned At Unknown Smoking Question Answer Notes Are you a: never smoker PROBLEMS Problem Type ICD Code Onset Dates Problem Status W/U Status Risk SNOMED Code Notes Problem Disorder of lipoprotein metabolism, 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 [address] [place] [address] 07/16/2024 PRAKASH CURTIS [facility] [address] [place] [address] 02/03/2025 PRAKASH CURTIS Anxiety disorder, unspecified F41.9 ; Disorder of lipoprotein metabolism, unspecified E78.9 ; Lumbar back pain M54.50 ; Hypertension, unspecified type I10 ; Encounter for general adult medical examination without abnormal findings Z00.00 and Nocturia R35.1 [facility] [address] [place] [address], [place] [address] 02/04/2025 PRAKASH CURTIS Erythrocytosis D75.[address] [address] 02/05/2025 PRAKASH CURTIS Erythrocytosis D75.[address] [address] 03/03/2025 PRAKASH CURTIS Hypertension, unspecified type I10 [address] [place] [address] 03/17/2025 NURSING PENN LAIRD BP check Z01.[address] [address] 03/17/2025 PRAKASH CURTIS [address], [facility] 03/28/2025 PRAKASH CURTIS [address] [address] 04/20/2025 MARY JANE PULITO [address] [place] [address] 04/21/2025 MARY JANE PULITO ASSESSMENTS Encounter Date Diagnosis Assessment Notes Treatment Notes Treatment Clinical Notes Section Notes 03/17/2025 BP check (ICD-10 - Z01.30) Please see telephone encounter for providers collaboration 03/03/2025 Hypertension, unspecified type (ICD-10 - I10) 02/05/2025 Erythrocytosis (ICD-10 - D75.1) 02/04/2025 Erythrocytosis (ICD-10 - D75.1) 02/03/2025 Anxiety disorder, unspecified (ICD-10 - F41.9) Stable doing well no need for therapy at the present time 02/03/2025 Disorder of lipoprotein metabolism, unspecified (ICD-10 - E78.9) Check lipid profile goal total cholesterol less than 200 LDL less than 100 optimally check CRP 02/03/2025 Lumbar back pain (ICD-10 - M54.50) Stable with no neurologic concerns no red flag symptoms neurologically intact stretch core strengthening physical therapy as needed 02/03/2025 Hypertension, unspecified type (ICD-10 - I10) Will set up a 24-hour amatory blood pressure monitor. No added salt diet weight loss recommended check EKG sinus rhythm check labs check UA family history of hypertension 02/03/2025 Encounter for general adult medical examination without abnormal findings (ICD-10 - Z00.00) 02/03/2025 Nocturia (ICD-10 - R35.1) Physical exam normal check PSA PLAN OF TREATMENT Pending Test Test Name Order Date EKG 12/05/2023 MRI Lumbar Spine without contrast 2022 24 hour ambulatory blood pressure monito r 02/01/2024 Future Test Test Name Order Date LIPID PANEL 12/03/2023 CBC (COMPLETE BLOOD COUNT) 12/03/2023 COMPREHENSIVE METABOLIC PANEL 12/03/2023 CRP HIGH SENSITIVITY 12/03/2023 LP(a) FRACTION 12/03/2023 PSA SCREEN 12/03/2023 Erythropoietin (EPO), Serum-[id number] 02/04 JAK2 Mutation Analysis, Qual-[id number] 03/2025 Next Appt Details Provider Name:PRAKASH ROBBINS, 02/05/2026 03:00:00 PM, [address] [place] [address], [phone], Insurance Providers Payer Name Payer Address Payer Phone Subscriber Number Group Number Insured Name Patient Relationship to Insured Coverage Start Date Coverage End Date [employer] [address] [place] [phone] [id number] JENNIFER RESENDEZ Self - patient is the insured MEDICAL (GENERAL) HISTORY Medical History History ICD Code Chiari I decompression surgery July 03 in [place] Chronic headaches Vaccination status COVID 2 shots. Flu sh ot q. year. Tdap 2017 COVID x1 [place] 2015 [place] [facility] [place] [facility] MRI of the brain March 2022 Chiari I malf ormation PSA 0.08 January 2023 Cholesterol total 187 triglycerides 91 H DL 46 LDL 1 22 January 2023 Glucose 89 BUN 17 creatinine 0.9 2022 [facility] chronic righ t shoulder pain Dr. Marx X-ray lumbar spine July 2023 degenera tive disease otherwise unremarkable Surgical History Surgery Date(Month/Year)
== END 2025-05-27 15:04 | disposition home or self-care (01) ==
LOC: HO.HUSH 14:20
PROVIDERS: PCP Internal Medicine; Visit Provider Urology
DX: N28.1 Cyst of kidney, acquired (principal); N52.9 Male erectile dysfunction, unspecified
CPT/HCPCS: 99214